=== PATIENT | female | born 1975 | race Caucasian/White ===

== ENCOUNTER 2019-05-24 05:17 | Emergency (ER) | payer SELFPAY ==
[2019-05-24] MEDS ORDERED: LORAZEPAM INJ 2 MG/1 ML VIAL IV ONE ×2 (05:23→05:39)
[2019-05-24] MEDS: MAGNESIUM SULFATE/D5W 1 GM/100 ML RTUPB IV SCH ×2 (05:25→05:45)
[2019-05-24] MEDS ORDERED: ALBUTEROL SULFATE 0.083% NEB 2.5 MG/3 ML AMPUL NEB ONE (05:31)
[2019-05-24] MEDS ORDERED: IPRATROPIUM/ALBUTEROL 0.5-2.5 MG/3 ML AMPUL NEB ONE (05:38)
[2019-05-24] MEDS ORDERED: METHYLPREDNISOLONE INJ 125 MG/2 ML SDV IV ONE (05:38)
--- NOTE | 2019-05-24 05:42 | ER Document Report ---
ED Respiratory Problem - General Stated Complaint: SHORTNESS OFBREATH Time Seen by Provider: 05/24/19 05:38 Mode of Arrival: Ambulatory Information source: Patient Notes: Patient is a 44-year-old female with history of asthma, diabetes and hypertension presenting to the emergency department in [facility]. Patient reports she started having a cough this morning as well as fever up to 101.8. She reports shortness of breath has increased through the day. She denies any recent travel or exposure to known COVID-19 positive persons however she works at [employer] and states she is exposed to many people. - Related Data Allergies/Adverse Reactions: No Known Allergies Allergy (Unverified 05/24/19 05:58) Past Medical History - General Information source: Patient - Social History Smoking Status: Never Smoker Frequency of alcohol use: None Drug Abuse: None Family History: Reviewed & Not Pertinent - Past Medical History Cardiac Medical History: Reports: Hx Hypertension Pulmonary Medical History: Reports: Hx Asthma Endocrine Medical History: Reports: Hx Diabetes Mellitus Type 2 Review of Systems - Review of Systems Constitutional: Chills, Fever Respiratory: Cough, Short of breath, Wheezing -: Yes All other systems reviewed and negative Physical Exam - Vital signs Vitals: Pulse Resp BP Pulse Ox 87 20 148/108 H 100 05/24/19 05:28 05/24/19 05:28 05/24/19 05:28 05/24/19 05:28 - Notes Notes: PHYSICAL EXAMINATION: GENERAL: Anxious, hyperventilating. HEAD: Atraumatic, normocephalic. EYES: Pupils equal round and reactive to light, extraocular movements intact, conjunctiva are normal. ENT: Nares patent, oropharynx clear without exudates. Moist mucous membranes. NECK: Normal range of motion, supple without lymphadenopathy LUNGS: Expiratory wheezes noted bilaterally, diminished breath sounds. Patient hyperventilating. HEART: Tachycardic ABDOMEN: Soft, nontender, nondistended abdomen. No guarding, no rebound. No masses appreciated. Female : deferred Musculoskeletal: Normal range of motion, no pitting or edema. No cyanosis. NEUROLOGICAL: Cranial nerves grossly intact. Normal speech, normal gait. Normal sensory, motor exams PSYCH: Anxious. SKIN: Warm, Dry, normal turgor, no rashes or lesions noted. Course - Re-evaluation Re-evalutation: At the time of my initial evaluation patient did have bilateral expiratory wheezes and diminished lung sounds however she was also hyperventilating. DuoNeb treatment was already in progress in the time of my arrival to the room, I immediately ordered 125 Solu-Medrol, 2 g of magnesium IV and also 1 mg of Ativan IV as anxiety does seem to be a component of this. We will transfer patient to the main side of the ED. Patient transferred to the main side of the ED where she received continuous alb uterol treatments per the advice of Dr. Castelan who came to the room and also evaluated the patient. After medications given in the emergency department and patient was given some time her respiratory status improved and she was able to calm down some after administration of Ativan. Vital signs are within normal limits on the monitor, she is not tachypneic or tachycardic anymore. She has not been hypoxic at all during her emergency department stay. She was tested for COVID-19 and will be discharged home at this time. I did prescribe her some Ativan as not only does she have some type of upper respiratory infection but due to the current world situation with COVID-19 patient's anxiety seems to be making things worse. - Vital Signs Vital signs: Temp Pulse Resp BP Pulse Ox 98.1 F 78 19 160/82 H 95 05/24/19 08:49 05/24/19 05:51 05/24/19 08:02 05/24/19 08:02 05/24/19 08:02 - Laboratory Result Diagrams: 05/24/19 06:24 05/24/19 06:24 Laboratory results interpreted by me: 05/24/19 05/24/19 06:24 06:24 RDW 14.4 H Glucose 206 H Discharge - Discharge Clinical Impression: Suspected COVID-19 virus infection, Shortness of breath Asthma exacerbation Qualifiers: Asthma severity: moderate Asthma persistence: unspecified Qualified Code(s): J45.901 - Unspecified asthma with (acute) exacerbation Condition: Stable Disposition: HOME, SELF-CARE Additional Instructions: Today your chest x-ray did not show any signs of pneumonia. Your flu swabs were negative. I suspect your cough is coming from a viral infection. Your oxygen level is not so low that you need to be admitted. I would like you to use the inhaler with spacer that we gave you, 2 puffs every 4 hours as needed to decrease cough or improve your breathing. If you have to use it more often than every 4 hours, if simply walking across the room makes you feel like you are going to pass out or like you just walked up 2 flights of steps please return to the emergency department. Please let any healthcare personnel that you see know that you have been tested for coronavirus. This includes if you need to return to the [facility]. You were tested for coronavirus (COVID 19) but these results may take 7 days or more to come back. Please stay in your house until they are resulted back or until you have been completely symptom-free for at least 3 days. Prescriptions: Lorazepam [Ativan 1 mg Tablet] 1 mg PO Q4 PRN #15 tab PRN Reason: Albuterol Sulfate [Proair HFA Inhalation Aerosol 8.5 gm MDI] 2 puff IH Q4H PRN #1 mdi PRN Reason: Forms: Special Work Note
[2019-05-24 06:37] LABS: ABSOLUTE EOSINOPHILS # (AUTO) 0.3 10^3/uL (0.0-0.6); ABSOLUTE LYMPHOCYTES (AUTO) 1.9 10^3/uL (0.5-4.7); ABSOLUTE MONOCYTES (AUTO) 0.4 10^3/uL (0.1-1.4); ABSOLUTE NEUT (AUTO) 5.4 10^3/uL (1.7-8.2); BASOPHILS % (AUTO) 0.5 % (0-2); EOSINOPHILS % (AUTO) 3.2 % (0-6); HEMATOCRIT 42.2 % (36.0-47.0); HEMOGLOBIN 14.5 g/dL (12.0-15.5); MEAN CORPUSCULAR HEMOGLOBIN 30.4 pg (27.0-33.4); MEAN CORPUSCULAR HGB CONC 34.3 g/dL (32.0-36.0); MEAN CORPUSCULAR VOLUME 89 fl (80-97); MONOCYTES % (AUTO) 5.4 % (3-13); PLATELET COUNT 378 10^3/uL (150-450); RED BLOOD COUNT 4.76 10^6/uL (3.72-5.28); RED CELL DISTRIBUTION WIDTH 14.4 % (11.5-14.0); SEGMENTED NEUTROPHILS % (AUTO) 66.9 % (42-78); TOTAL CELLS COUNTED % (AUTO) 100 %; VENOUS BLOOD HCO3 24.8 mmol/L (20-32); VENOUS BLOOD PCO2 49.6 mmHg (35-63); VENOUS BLOOD PH 7.32 (7.30-7.42)
--- NOTE | 2019-05-24 06:37 | RADIOLOGY REPORT (SQ) ---
EXAM DESCRIPTION: [facility]: XR CHEST 1 VIEW CLINICAL HISTORY: 44 years Female; cough/fever; COMPARISON: None. FINDINGS: Lungs are clear, with no focal infiltrate, pneumothorax, or pleural effusion. Mediastinum is within normal limits for this positioning. Bony structures are unremarkable. IMPRESSION: 1. No acute pulmonary findings.
[2019-05-24 06:52] LABS: A TYPE INFLUENZA AG NEGATIVE (NEGATIVE); B INFLUENZA AG NEGATIVE (NEGATIVE)
[2019-05-24 06:53] LABS: ALBUMIN 4.5 g/dL (3.5-5.0); ALKALINE PHOSPHATASE 120 U/L (38-126); ANION GAP 9 (5-19); ASPARTATE AMINO TRANSFERASE 17 U/L (14-36); BILIRUBIN,DIRECT 0.2 mg/dL (0.0-0.4); BILIRUBIN,TOTAL 0.4 mg/dL (0.2-1.3); BLOOD UREA NITROGEN 15 mg/dL (7-20); CARBON DIOXIDE 27 mmol/L (22-30); CHLORIDE 102 mmol/L (98-107); GLUCOSE 206 mg/dL (75-110); POTASSIUM 4.6 mmol/L (3.6-5.0)
[2019-05-24 08:09] VITALS: BP 160/82
[2019-05-24] MEDS ORDERED: ALBUTEROL SULFATE HFA (90 MCG/PUFF) 8 GM MDI (1 MDI/ER DISP) IH ONE (08:30)
--- NOTE | 2019-05-25 10:49 | EKG REPORT ---
SEVERITY:- ABNORMAL ECG - SINUS RHYTHM ABNRM R PROG, CONSIDER ASMI OR LEAD PLACEMENT : Confirmed by: Rocco Cha 25-May-2019 10:48:34
== END 2019-05-24 08:50 | disposition home or self-care (01) ==
LOC: ER 05:17
DX: Z20.828 Contact with and (suspected) exposure to other viral communicable diseases (principal); R06.02 Shortness of breath; J45.901 Unspecified asthma with (acute) exacerbation; R05 Cough; R50.9 Fever, unspecified; F41.9 Anxiety disorder, unspecified; R06.4 Hyperventilation; E11.9 Type 2 diabetes mellitus without complications; I10 Essential (primary) hypertension
CPT/HCPCS: 93005; 94640 ×2; 99285; 96375; 96365; 36415; 85025; 87635; 80053; 82803; 87804; 71045; 93010; J2930; J2060; J3475; J7620

== ENCOUNTER 2019-10-07 08:58 | Emergency (ER) | payer SELFPAY ==
[2019-10-07 10:08] LABS: ABSOLUTE BASOPHILS # (AUTO) 0.1 10^3/uL (0.0-0.2); ABSOLUTE EOSINOPHILS # (AUTO) 0.3 10^3/uL (0.0-0.6); ABSOLUTE LYMPHOCYTES (AUTO) 1.5 10^3/uL (0.5-4.7); ABSOLUTE MONOCYTES (AUTO) 0.6 10^3/uL (0.1-1.4); ABSOLUTE NEUT (AUTO) 4.7 10^3/uL (1.7-8.2); BASOPHILS % (AUTO) 1.3 % (0-2); HEMATOCRIT 38.8 % (36.0-47.0); HEMOGLOBIN 12.9 g/dL (12.0-15.5); LYMPHOCYTES % (AUTO) 21.4 % (13-45); MEAN CORPUSCULAR HEMOGLOBIN 29.4 pg (27.0-33.4); MEAN CORPUSCULAR HGB CONC 33.3 g/dL (32.0-36.0); MEAN CORPUSCULAR VOLUME 88 fl (80-97); MONOCYTES % (AUTO) 7.7 % (3-13); PLATELET COUNT 293 10^3/uL (150-450); RED CELL DISTRIBUTION WIDTH 13.9 % (11.5-14.0); SEGMENTED NEUTROPHILS % (AUTO) 65.6 % (42-78); TOTAL CELLS COUNTED % (AUTO) 100 %; WHITE BLOOD COUNT 7.2 10^3/uL (4.0-10.5)
--- NOTE | 2019-10-07 10:14 | ER Document Report ---
Entered by LYNN PENN SCRIBE 10/07/19 0952 Acting as scribe for:JANETT LINDA MD ED GI Bleed / Rectal Pain - General Chief Complaint: Rectal Bleeding Stated Complaint: RECTAL BLEEDING Time Seen by Provider: 10/07/19 09:36 Primary Care Provider: [facility] [Provider Group] - Follow up in 3-5 days Mode of Arrival: Ambulatory Information source: Patient Notes: This 44 year old female patient presents to the emergency department today with complaints of rectal bleeding x4 days. She states that she develops lower abdominal cramping like she needs to have a bowel movement and then she has bright red blood with clots sometimes mixed with stool sometimes not coming out of her rectum. She has x4-6 of these episodes a day or more. She has had multiple anal fissures in the past requiring procedures to stop the bleeding. Patient reports that she was transfused 7 units on two occasions from anal fissures. She mentions that her fingers have been numb and tingly for the last day. Patient moved here from [place] about a year ago and has not been on any of her medications since moving here. - Related Data Allergies/Adverse Reactions: No Known Allergies Allergy (Verified 10/07/19 09:15) Home Medications: none Past Medical History - General Information source: Patient - Social History Smoking Status: Current Every Day Smoker Cigarette use (# per day): Yes Chew tobacco use (# tins/day): No Frequency of alcohol use: None Drug Abuse: None Lives with: Spouse/Significant other Family History: Reviewed & Not Pertinent Patient has homicidal ideation: No - Past Medical History Cardiac Medical History: Reports: Hx Hypertension Pulmonary Medical History: Reports: Hx Asthma, Hx COPD Endocrine Medical History: Reports: Hx Diabetes Mellitus Type 2 Surgical Hx: Negative Review of Systems - Review of Systems Constitutional: No symptoms reported EENT: No symptoms reported Cardiovascular: No symptoms reported Respiratory: No symptoms reported Gastrointestinal: See HPI, Abdominal pain - cramping, Rectal bleeding Genitourinary: No symptoms reported Female Genitourinary: No symptoms reported Musculoskeletal: No symptoms reported Skin: No symptoms reported Hematologic/Lymphatic: No symptoms reported Neurological/Psychological: Tingling - Patient describes a tingling and pins and needle sensation in her feet. -: Yes All other systems reviewed and negative Physical Exam - Vital signs Vitals: Temp Pulse Resp BP Pulse Ox 98.3 F 89 24 H 152/101 H 93 10/07/19 09:04 10/07/19 09:04 10/07/19 09:04 10/07/19 09:04 10/07/19 09:04 - Notes Notes: Physical Exam: General: Alert, morbidly obese. HEENT: Normocephalic. Atraumatic. PERRL. Extraocular movements intact. Oropharynx clear. Neck: Supple. Non-tender. Respiratory: No respiratory distress. Clear and equal breath sounds bilaterally. Cardiovascular: Regular rate and rhythm. Abdominal: Morbidly obese. Non-tender. No distension. Normal Bowel Sounds. Back: No gross abnormalities. Extremities: Moves all four extremities. Upper extremities: Normal inspection. Normal ROM. Lower extremities: Normal inspection. No edema. Normal ROM. Neurological: Normal cognition. AAOx4. Normal speech. Psychological: Normal affect. Normal Mood. Skin: Warm. Dry. Normal color Course - Vital Signs Vital signs: Temp Pulse Resp BP Pulse Ox 98.3 F 89 24 H 152/101 H 93 10/07/19 09:04 10/07/19 09:04 10/07/19 09:04 10/07/19 09:04 10/07/19 09:04 - Laboratory Result Diagrams: 10/07/19 09:45 10/07/19 09:45 Laboratory results interpreted by me: 10/07/19 10/07/19 10/07/19 09:45 09:45 11:15 Glucose 328 H Hemoglobin A1c % 9.4 H Urine Protein 100 H Urine Glucose (UA) >=500 H Urine Blood MODERATE H Ur Leukocyte Esterase LARGE H Discharge - Discharge Clinical Impression: Rectal bleeding, Has run out of medications High blood pressure Qualifiers: Hypertension type: essential hypertension Qualified Code(s): I10 - Essential (primary) hypertension Type 2 diabetes mellitus Qualifiers: Diabetes mellitus skip tender insulin use: unspecified usp insulin use status Diabetes mellitus complication status: with other specified complication Qualified Code(s): E11.69 - Type 2 diabetes mellitus with other specified complication Condition: Stable Disposition: HOME, SELF-CARE Additional Instructions: Rectal Bleeding, Unclear Cause No definite cause has been found for the rectal bleeding you have experienced. Among the possible causes are internal or external hemorrhoids (internal hemorrhoids can't be felt on the outside), an anal fissure (a crack at the anal ring), infections or inflammatory diseases of the colon, tumors or polyps, or diverticula (diverticula are outpouchings from the colon wall). To establish a cause for your bleeding (or at least make certain there is no serious problem such as a tumor), further evaluation will be necessary. This may include special X-rays, or passage of a scope up into the colon. Be sure to keep your follow-up appointment. Should you develop brisk bleeding, abdominal pain, fever, lightheadedness, or fever, call the doctor or return at once. Your blood levels at this time are normal. You do need to start back on blood pressure and diabetes medicines. Follow-up with a local primary care provider to manage your medical problems. Call [facility] today to schedule an appointment for evaluation of your rectal bleeding. RETURN TO THE EMERGENCY ROOM IF ANY NEW OR WORSENING SYMPTOMS. Prescriptions: Metoprolol Tartrate [Lopressor 50 mg Tablet] 50 mg PO QHS #30 tablet Lisinopril/Hydrochlorothiazide [Lisinopril-Hctz 10-12.5 mg Tab] 1 each PO DAILY #30 tablet Metformin HCl 850 mg PO BID #60 tablet Referrals: [facility] [Provider Group] - Follow up in 3-5 days I personally performed the services described in the documentation, reviewed and edited the documentation which was dictated to the scribe in my presence, and it accurately records my words and actions.
[2019-10-07 10:31] LABS: ALBUMIN 3.8 g/dL (3.5-5.0); ALKALINE PHOSPHATASE 98 U/L (38-126); ANION GAP 10 (5-19); ASPARTATE AMINO TRANSFERASE 20 U/L (14-36); BILIRUBIN,TOTAL 0.3 mg/dL (0.2-1.3); BLOOD UREA NITROGEN 11 mg/dL (7-20); CALCIUM 9.2 mg/dL (8.4-10.2); CARBON DIOXIDE 27 mmol/L (22-30); CHLORIDE 100 mmol/L (98-107); GLUCOSE 328 mg/dL (75-110); POTASSIUM 4.2 mmol/L (3.6-5.0); TOTAL PROTEIN 6.9 g/dL (6.3-8.2)
[2019-10-07 11:37] LABS: AMORPHOUS SEDIMENT,URINE TRACE /HPF; APPEARANCE,URINE CLOUDY; BILIRUBIN,URINE NEGATIVE (NEGATIVE); COLOR,URINE YELLOW; GLUCOSE, URINE >=500 mg/dL (NEGATIVE); KETONES,URINE NEGATIVE (NEGATIVE); LEUKOCYTE ESTERASE,URINE LARGE (NEGATIVE); NITRITE,URINE NEGATIVE (NEGATIVE); PROTEIN,URINE 100 mg/dL (NEGATIVE); URINE SPECIFIC GRAVITY 1.024; UROBILINOGEN,URINE NEGATIVE mg/dL (<2.0)
[2019-10-07 12:42] VITALS: BP 171/100
== END 2019-10-07 12:43 | disposition home or self-care (01) ==
LOC: ER 08:58
DX: I10 Essential (primary) hypertension (principal); E11.69 Type 2 diabetes mellitus with other specified complication; K62.5 Hemorrhage of anus and rectum; R10.30 Lower abdominal pain, unspecified; R10.9 Unspecified abdominal pain; Z79.899 Other long term (current) drug therapy; F17.210 Nicotine dependence, cigarettes, uncomplicated; J44.9 Chronic obstructive pulmonary disease, unspecified
CPT/HCPCS: 36415; 80053; 81001; 83036; 84703; 85025; 86850; 86900; 86901; 99283

== ENCOUNTER 2019-10-29 09:22 | Day surgery (SDC) | payer OTHER ==
[2019-10-24 09:06] LABS: HEMATOCRIT 44.1 % (36.0-47.0); HEMOGLOBIN 14.7 g/dL (12.0-15.5); MEAN CORPUSCULAR HEMOGLOBIN 29.8 pg (27.0-33.4); MEAN CORPUSCULAR HGB CONC 33.5 g/dL (32.0-36.0); MEAN CORPUSCULAR VOLUME 89 fl (80-97); PLATELET COUNT 372 10^3/uL (150-450); RED BLOOD COUNT 4.95 10^6/uL (3.72-5.28); RED CELL DISTRIBUTION WIDTH 14.2 % (11.5-14.0); WHITE BLOOD COUNT 9.7 10^3/uL (4.0-10.5)
[~2019-10-29 09:22] MED LIST: LACTATED RINGERS 1000 ML IV PRN; LIDOCAINE 0.5% INJ-PF (5 MG/ML) 50 ML SDV SUBCUT PRN; PROPOFOL INJ 200 MG/20 ML VIAL IV ONE
[2019-10-29] MEDS ORDERED: PROPOFOL INJ 200 MG/20 ML VIAL IV ONE (13:08)
[2019-10-29] MEDS ORDERED: SIMETHICONE 80 MG TAB.CHEW ONE (13:59)
[2019-10-29] MEDS ORDERED: SIMETHICONE 80 MG TAB.CHEW PO ONE ×2 (14:00→14:30)
[2019-10-29 14:25] VITALS: BP 134/81
--- NOTE | 2019-10-30 20:43 | Discharge Summary ---
Discharge Summary (SDC) - Discharge Final Diagnosis: Colon Polyps, no evidence of bleeding Date of Surgery: 10/29/19 Discharge Date: 10/29/19 Condition: Good Forms: EU Anesthesia D/C Instructions, Discharge POC-Surgical Service Treatment or Instructions: INCREASE DIET TOLERATED, NO DRIVING OR OPERATING EQUIPMENT THAT REQUIRES ATTENTION, KEEP SCHEDULED APPOINTMENTS, REPORT UNUSUAL BLEEDING, NAUSEA OR VOMITING Referrals: SELVIN LUGO MD [ACTIVE STAFF] - Discharge Diet: As Tolerated Respiratory Treatments at Home: Deep Breathing/Coughing Discharge Activity: Activity As Tolerated, No Driving Home Care Assistance: None Needed Report the Following to Your Physician Immediately: Shortness of Breath, Nausea, Vomiting, Increase in Pain, Unusual Bleeding
--- NOTE | 2019-10-30 20:47 | Operative Report ---
Nonrecallable Operative Report DATE OF SURGERY: 10/29/19 PREOPERATIVE DIAGNOSIS: Rectal bleeding POSTOPERATIVE DIAGNOSIS: 1. No evidence of bleeding (no new blood or old blood). 2. Several small colon polyps removed via snare polypectomy. OPERATION: 1. Colonoscopy to the cecum. 2. Snare polypectomy of several small polyps. SURGEON: SELVIN LUGO ANESTHESIA: LMAC TISSUE REMOVED OR ALTERED: 1. Polyp at 15 cm. 2. Rectal polyp x2 COMPLICATIONS: None apparent ESTIMATED BLOOD LOSS: Minimal PROCEDURE: Drains/implants: None. Procedure in detail: After informed consent was obtained, the patient was brought into the operating room and laid in the left lateral decubitus position. The endoscope was inserted into the rectum. It was passed up the rectum, sigmoid colon, descending colon, across the transverse colon, down the ascending colon, and into the cecum. The ileocecal valve and appendiceal orifice were identified. The scope was then withdrawn, circumferentially noting the mucosa. The prep was fair. Multiple washings and suctionings were required in order to adequately visualize the mucosa. The scope was pulled back past the ascending colon, transverse colon, down the descending colon, sigmoid colon, and into the rectum. At approximately 15 cm a small polyp was identified. It was removed in its entirety via hot snare polypectomy. The scope was pulled into the rectal vault, where 2 small polyps were found immediately adjacent to 1 another. These 2 polyps were also removed via hot snare polypectomy in their entirety. The scope was then brought down into the distal rectum, at the anus. A retroflexion maneuver was performed noting no significant internal hemorrhoids. The scope was straightened, air was suctioned from the rectum, the scope was removed, and the procedure was then concluded. Please note there were no large masses, ulcerations, diverticula, AV malformations, large internal/external hemorrhoids, or any other sign of active/recent bleeding. Condition: Stable.
== END 2019-10-29 14:34 | disposition home or self-care (01) ==
LOC: END 09:22
PROVIDERS: ATTEND Surgery
DX: K63.5 Polyp of colon (principal); K62.1 Rectal polyp; K62.5 Hemorrhage of anus and rectum; J44.9 Chronic obstructive pulmonary disease, unspecified; E11.9 Type 2 diabetes mellitus without complications; I10 Essential (primary) hypertension; R51 Headache; K64.8 Other hemorrhoids; G89.29 Other chronic pain; G47.30 Sleep apnea, unspecified; F17.200 Nicotine dependence, unspecified, uncomplicated; E66.9 Obesity, unspecified; Z98.890 Other specified postprocedural states; Z79.899 Other long term (current) drug therapy; Z03.818 Encounter for observation for suspected exposure to other biological agents ruled out
CPT/HCPCS: 45384; 45385; 36415; 82962; 85027; 87635; 88305 ×2; 00811; J2704; C9803; 811